=== PATIENT | female | born 1945 | race Caucasian/White ===

== ENCOUNTER 2020-08-04 13:52 | Emergency (ER) | payer MEDICARE, SELFPAY ==
[2020-08-04] VITALS (11 sets, daily range): BP systolic 140–187; BP diastolic 75–101; PULSE 81–106; RESP 20–23; TEMP 36.8–37.1; O2SAT 90–96; BMI 28.6
--- NOTE | 2020-08-04 13:55 | ED.VIS.GEN ---
History of Present Illness Chief Complaint: Neuro S/Sx Past Medical History Primary Care Physician: [facility] Agueda Espino [Primary Care Provider] - ED Disposition - Plan for ED Patient: Referrals: [facility] Agueda Espino [Primary Care Provider] -
--- NOTE | 2020-08-04 13:56 | CT_ITS ---
STUDY: CT HEAD STROKE PROTOCOL W/O CONTRAST INJECTION REASON FOR EXAM: Female, 75 years old. Neuro deficit, acute, stroke suspected RADIATION DOSAGE (If Supplied By Facility): CTDIvol = ( ) mGy, DLP = ( ) mGycm TECHNIQUE: Transaxial CT imaging of the brain was performed without administration of intravenous contrast material. Individualized dose optimization techniques were used for this CT. COMPARISON: No relevant priors. FINDINGS: Normal soft tissue structures. Normal calvarium. There is evidence of a 5.7 cm by 2.9 cm intracerebral hematoma in the right frontal lobe extending into the medial aspect of the right parietal lobe with surrounding edema and mass effect. No significant midline shift is seen. There is also evidence of blood within the right lateral ventricle. I also suspect petechial bleeding in the posterior bilateral occipital gyral superiorly. There is mild cerebral atrophy with widening of the extra-axial spaces and ventricular dilatation. There are areas of decreased attenuation within the white matter tracts of the supratentorial brain, consistent with microvascular disease changes. Normal basal ganglia and thalami. Normal brainstem. There is mild cerebellar atrophy. Partial opacification of the right maxillary sinus. Mucosal thickening of the right ethmoid sinus. CT/STROKE Brain/Head without Cont IMPRESSION: 5.7 cm x 2.9 cm intracerebral hematoma in the right frontal lobe extending into the medial aspect of the right middle lobe with surrounding edema and mass effect. No significant midline shift. Blood is also seen in the right lateral ventricle. Petechial hemorrhage in the posterior aspect of the left and right occipital lobes in a gyral distribution. N.B. : The above information has been verbally conveyed by Abiodun Lehman MD to Pascual Ram on 08/04/2020 14:08:01 (ET). Electronically Signed: Abiodun Lehman MD at 14:09 EDT , Service support ,
--- NOTE | 2020-08-04 13:56 | EKG12_ITS ---
Test Reason : STROKE Blood Pressure : / mmHG Vent. Rate : 081 BPM Atrial Rate : 081 BPM P-R Int : 170 ms QRS Dur : 072 ms QT Int : 396 ms P-R-T Axes : 087 048 017 degrees QTc Int : 460 ms Normal sinus rhythm Septal infarct , age undetermined Abnormal ECG Confirmed by CHERYL VALLE, RONNY ([id number]), purchase request editor JEWEL OSMAN ([id number]) on 08/08/2020 1:30:06 PM Referred By: Confirmed By:SHARLENE LUNA MD
[2020-08-04] MEDS: Labetalol 100 MG/20 ML Vial 20 MG IV (14:17)
[2020-08-04 14:23] LABS: Absolute Lymphocyte Count 2.73 X10^3/uL (0.83-4.51); Absolute Neutrophil Count 4.7 X10^3/uL (2.0-7.7); Basophil# 0.06 X10^3/uL; Basophil% 0.7 % (0-1); Eosinophil# 0.13 X10^3/uL; Eosinophils% 1.6 % (0-5); Hematocrit 44.2 % (37-47); Hemoglobin 14.6 g/dL (12.0-15.0); Lymphocyte # 2.73 X10^3/ul (4.0); Lymphocyte % 32.8 % (19-41); Mean Corpuscular Hgb 30.7 pg (27.0-32.0); Mean Corpuscular Volume 93.1 fL (81-99); Mean Platelet Vol. 9.5 fl (6.2-12.0); Monocyte% 8.4 % (0-10); NRBC Flagged by Analyzer 0 % (0-5); Neutrophil # 4.66 X10^3/uL (2.7-7.7); Platelet Count 246 K/mm3 (150-450); RBC Distribution Width CV 11.7 % (11.6-14.6); RBC Distribution Width SD 40.1 fl (35.1-43.9); Red Blood Count 4.75 M/mm3 (4.2-5.4); White Blood Count 8.3 K/mm3 (4.4-11.0)
--- NOTE | 2020-08-04 14:29 | CHAPLAIN ---
Type of Pastoral Visit ___ Initial Visit ___ Follow-up Visit ___ On-call Visit ___ General Patient Visit ___ Spiritual Assessment ___ Family Conference ___ Bereavement _x__ Rapid Response ___ Code Blue ___ Other (describe below) Pastoral Care Referral From ___ Patient ___ Family ___ Nurse ___ Physician ___ Manager Digital [employer] ___ Rickshaw Driver _x__ Other (describe below) Sacrament/Intervention ___ Active listening ___ Anointing ___ Scientologist ___ Bereavement ___ Communion ___ Ophelia exploration ___ ___ Life review ___ Prayer ___ Reconciliation ___ Sacrament of Sick _x__ Supportive presence ___ Wedding ___ Other (describe below) Pastoral Comments responded to stroke alert; met patient and [id number]; pt not able to talk but gives thumbs up when offer support and prayer; family member states that she is ok for now until decision made for patient and no other needs
[2020-08-04 14:31] LABS: Prothrombin Time (Protime)PT. 12.6 SECONDS (11.7-14.9)
--- NOTE | 2020-08-04 14:34 | RAD_ITS ---
STUDY: X-RAY CHEST REASON FOR EXAM: Female, 75 years old. Neuro deficit, acute, stroke suspected TECHNIQUE: Single AP portable view of the chest. COMPARISON: None. FINDINGS: EKG electrodes are seen. Mild increased markings at the lung bases slightly more prominent on the left side suggests some bibasilar atelectasis. There is no demonstrated pleural abnormality. Sternal cerclage wires and vascular clips are present from a prior sternotomy and coronary artery bypass graft procedure (CABG). Normal mediastinum and martha. Normal visualized pulmonary arteries. Normal visualized aortic arch and descending thoracic aorta. Normal visualized thoracic spine. There is degenerative osteoarthritis of the bilateral shoulders. There is no demonstrated abnormality of the visualized soft tissue structures of the upper abdomen. RAD/Chest 1 View IMPRESSION: Mild degree of increased markings at the lung bases suggesting bibasilar atelectasis worse on the left side. Electronically Signed: Abiodun Lehman MD at 14:51 EDT , Service support ,
[2020-08-04 14:41] LABS: Anion Gap 4 (5-15); BUN 12 mg/dL (7-18); BUN/Creat Ratio 16.5 RATIO (10-20); Calcium,Total 9.3 mg/dL (8.5-10.1); Chloride 106 mmol/L (98-107); Creatinine, Serum 0.73 mg/dL (0.55-1.02); EST Glomerular Filtration Rate 83 mL/min (>60); Est Glom Filt Rate - Afr Amer 100 mL/min (>60); Estimated Creatinine Clearance 35.45 ml/min; Glucose 126 mg/dL (74-106); Potassium 3.8 mmol/L (3.5-5.1); Sodium Level 137 mmol/L (136-145)
--- NOTE | 2020-08-04 14:47 | ED.RN ---
DR FRANK TALKING TO PT'S FAMILY TO SEE IF THEY WANT HER TRANSFERED OR IF THEY WANT PT TO BE SET UP WITH HOSPICE. PT ABLE TO SHAKE HER HEAD NO WHEN ASKED IF SHE WOULD WANT SURGERY.
--- NOTE | 2020-08-04 14:58 | ED.VIS.STROK ---
History of Present Illness Chief Complaint: Neuro S/Sx Informant: Family, Concrete Smoother Narrative: This is a 75-year-old female arriving as a prehospital stroke team. Per EMS the patient was last seen normal at 11:30 PM last night. This morning was found in bed incontinent unable to move the left side of her body or speak. Patient says minimal words. She appears to be nauseous. Past Medical History - Allergies and Home Meds Allergies/Adverse Reactions: Allergies No Known Allergies Allergy (Verified 08/04/20 14:09) [facility] - Past Medical History: - - coronary artery disease hypertension osteoarthritis hyperlipidemia hypothyroidism Surgical History: noncontributory, coronary bypass surgery, hysterectomy, - - Right knee surgery bladder suspension aortic valve replacement to a tissue valve ventral hernia Lives: Alone Smoking Status: Former smoker Alcohol: None Drugs: None Review of Systems ROS: Unable to Obtain STROKE Vital Signs/Narrative: Vital Signs Temp Pulse Resp BP Pulse Ox 08/04/20 14:45 83 22 H 149/87 H 94 08/04/20 14:30 81 23 H 148/87 H 94 08/04/20 14:19 81 23 H 147/79 H 95 08/04/20 14:11 94 08/04/20 14:04 98.3 F 98 21 H 187/101 H 91 08/04/20 14:03 106 H 20 H 90 Inital Vital Signs reviewed: Yes - NIHSS Initial 1a Level of Consciousness: 0 1b LOC Questions (Score 2 if aphasic/stupor): 2 1c LOC Commands (Only score 1st attempt): 0 2 Best Gaze (If aphasic, use reflexive mvmts.): 2 3 Visual: 2 4 Facial Palsy: 1 5 Motor Arm Right (UN = amputation/fusion): 0 5 Motor Arm Left: 4 6 Motor Leg Right: 0 6 Motor Leg Left: 4 7 Limb ataxia (Only + if out of proportion): 1 8 Sensory (Aphasia/stupor=0 or 1, coma=2): 2 9 Best Language: 3 10 Dysarthria (mute, coma=2, intubated=UN): 2 11 Extinction and Inattention (only scored if +): 2 Total Score: 25 General: Well nourished, Well developed Head: Normocephalic, Atraumatic Eyes: Perrl, EOMI ENT: Moist mucous membranes, No rhinorrhea Neck: Supple, Nontender Cardiovascular: Regular rate, Regular rhythm, No murmurs Respiratory: No distress, CTA bilaterally, Chest nontender Abdomen: Soft, Nontender, Nondistended, Normal bowel sounds Back: Nontender, Normal Inspection Extremities: Nontender, No edema Skin: Normal color, No rash Neurological: Alert Diagnostic/Tx/Re-eval Clinical Impression(s) from Imaging Studies Brain CT 08/04/20 13:56 IMPRESSION: 5.7 cm x 2.9 cm intracerebral hematoma in the right frontal lobe extending into the medial aspect of the right middle lobe with surrounding edema and mass effect. No significant midline shift. Blood is also seen in the right lateral ventricle. Petechial hemorrhage in the posterior aspect of the left and right occipital lobes in a gyral distribution. N.B. : The above information has been verbally conveyed by Abiodun Lehman MD to Pascual Ram on 08/04/2020 14:08:01 (ET). Electronically Signed: Abiodun Lehman MD at 14:09 EDT , Service support , ADDENDUM: 08/04/20 1416 IMPRESSION: 5.7 cm x 2.9 cm intracerebral hematoma in the right frontal lobe extending into the medial aspect of the right middle lobe with surrounding edema and mass effect. No significant midline shift. Blood is also seen in the right lateral ventricle. Petechial hemorrhage in the posterior aspect of the left and right occipital lobes in a gyral distribution. N.B. : The above information has been verbally conveyed by Abiodun Lehman MD to Pascual Ram on 08/04/2020 14:08:01 (ET). Electronically Signed: Abiodun Lehman MD at 14:09 EDT , Service support , Chest X-Ray 08/04/20 14:34 IMPRESSION: Mild degree of increased markings at the lung bases suggesting bibasilar atelectasis worse on the left side. Electronically Signed: Abiodun Lehman MD at 14:51 EDT , Service support , Laboratory Last Values WBC 8.3 K/mm3 (4.4-11.0) 08/04/20 14:07 RBC 4.75 M/mm3 (4.2-5.4) 08/04/20 14:07 Hgb 14.6 g/dL (12.0-15.0) 08/04/20 14:07 Hct 44.2 % (37-47) 08/04/20 14:07 MCV 93.1 fL (81-99) 08/04/20 14:07 MCH 30.7 pg (27.0-32.0) 08/04/20 14:07 MCHC 33.0 g/dL (32-36) 08/04/20 14:07 RDW Std Deviation 40.1 fl (35.1-43.9) 08/04/20 14:07 RDW Coeff of Willie 11.7 % (11.6-14.6) 08/04/20 14:07 Plt Count 246 K/mm3 (150-450) 08/04/20 14:07 MPV 9.5 fl (6.2-12.0) 08/04/20 14:07 Immature Gran % (Auto) 0.500 % (0.0-0.9) 08/04/20 14:07 Neut % (Auto) 56.0 % (47-70) 08/04/20 14:07 Lymph % (Auto) 32.8 % (19-41) 08/04/20 14:07 [place] % (Auto) 8.4 % (0-10) 08/04/20 14:07 Eos % (Auto) 1.6 % (0-5) 08/04/20 14:07 Baso % (Auto) 0.7 % (0-1) 08/04/20 14:07 Absolute Neuts (auto) 4.7 X10^3/uL (2.0-7.7) 08/04/20 14:07 Absolute Lymphs (auto) 2.73 X10^3/uL (0.83-4.51) 08/04/20 14:07 Nucleated RBC % 0 % (0-5) 08/04/20 14:07 PT 12.6 SECONDS (11.7-14.9) 08/04/20 14:07 INR 1.0 08/04/20 14:07 APTT 30.0 Seconds (24.1-36.2) 08/04/20 14:07 Sodium 137 mmol/L (136-145) 08/04/20 14:07 Potassium 3.8 mmol/L (3.5-5.1) 08/04/20 14:07 Chloride 106 mmol/L (98-107) 08/04/20 14:07 Carbon Dioxide 27.0 mmol/L (21.0-32.0) 08/04/20 14:07 Anion Gap 4 (5-15) L 08/04/20 14:07 BUN 12 mg/dL (7-18) 08/04/20 14:07 Creatinine 0.73 mg/dL (0.55-1.02) 08/04/20 14:07 Estim Creat Clear Calc 35.45 ml/min 08/04/20 14:07 Est GFR (MDRD) Af Amer 100 mL/min (>60) 08/04/20 14:07 Est GFR (MDRD) Non-Af 83 mL/min (>60) 08/04/20 14:07 BUN/Creatinine Ratio 16.5 RATIO (10-20) 08/04/20 14:07 Glucose 126 mg/dL (74-106) H 08/04/20 14:07 Calcium 9.3 mg/dL (8.5-10.1) 08/04/20 14:07 Troponin I < 0.015 ng/mL (<0.045) 08/04/20 14:07 - EKG Initial EKG Interpretation: Sinus Rhythm - EKG demonstrates a normal sinus rhythm at a rate of 81 without concerning features of ACS or ectopy. - Medical Decision Making Stroke Team Activated: Yes Reviewed Inclusion/Exclusion criteria: Yes Was Patient considered for Endovascular Intervention?: No IV Alteplase (t-PA) Administered: No No contraindications for IV Alteplase (t-PA) administration.: No Alteplase (t-PA) risks, benefits, alternative discussed: No Not given: Patient refusal: No Initial head CT shows a large 5.7 x 2.9 cm intracerebral hematoma in the right frontal lobe extending into the right middle lobe with surrounding edema and mass-effect. Case was discussed with her son and [id number] initially and later her sister. They state that the patient does not want any neurosurgery based on her other sisters experience with intracranial hemorrhage. They recommend hospice/palliative care. I did fill out DNR comfort care only paperwork. Patient required some labetalol for her hypertension before decision was made. She received Zofran morphine and Robinul. Patient has been having problems handling her secretions. At this point hospice has been contacted and they have come to the emergency department to see the patient. I did a physician to physician phone call with hospice. Critical care time (excluding procedures): 30-74 minutes - 40 minutes ED Disposition - Plan for ED Patient: Disposition: Acute Care Hospital - Other Diagnosis: Intracranial hemorrhage Referrals: [facility],Agueda Raman [NON-STAFF] -
[2020-08-04] MEDS: Ondansetron 4 MG/2 ML Vial IV (15:01)
[2020-08-04] MEDS: Glycopyrrolate 0.2 MG/ML Vial 0.1 MG IV (15:09)
--- NOTE | 2020-08-04 15:50 | ED.RN ---
able to d/c nih stroke scale per dr. dozier, pt is going under hospice care
== END 2020-08-04 17:01 | disposition short-term general hospital (02) ==
PROVIDERS: Emergency Provider Emergency Medicine; PCP Family Medicine
DX: I62.9 Nontraumatic intracranial hemorrhage, unspecified (principal); I10 Essential (primary) hypertension; Z66 Do not resuscitate; I25.10 Atherosclerotic heart disease of native coronary artery without angina pectoris; E78.5 Hyperlipidemia, unspecified; E03.9 Hypothyroidism, unspecified; M19.90 Unspecified osteoarthritis, unspecified site; Z87.891 Personal history of nicotine dependence; Z90.710 Acquired absence of both cervix and uterus; Z95.2 Presence of prosthetic heart valve; R23.3 Spontaneous ecchymoses
CPT/HCPCS: 70450; 71045; 80048; 84484; 85025; 85610; 85730; 93005; 96361; 96374; 96375; 99285; J7030; A4216; J2405